=== PATIENT | male | born 1940 | race Caucasian/White ===

== ENCOUNTER 2017-05-15 10:28 | Emergency (ER) | payer OTHER ==
[2017-05-15] MEDS ORDERED: METFORMIN1000 MG PO (10:37)
[2017-05-15] MEDS ORDERED: SIMVASTATIN20 MG PO (10:37)
[2017-05-15] MEDS ORDERED: AMLODIPINE BESYL5 MG PO (10:37)
== END 2017-05-15 14:02 | disposition home or self-care (01) ==
LOC: ED 10:28
DX: S49.91XA Unspecified injury of right shoulder and upper arm, initial encounter (principal); S79.912A Unspecified injury of left hip, initial encounter; Z79.899 Other long term (current) drug therapy; Z88.5 Allergy status to narcotic agent; W00.0XXA Fall on same level due to ice and snow, initial encounter; Y93.89 Activity, other specified; Y92.89 Other specified places as the place of occurrence of the external cause; Y99.9 Unspecified external cause status

== ENCOUNTER → 2023-11-04 | Outpatient (CLI) | payer OTHER ==
[~2023-11-04] MED LIST: AMLODIPINE BESYL5 MG PO; METFORMIN1000 MG PO; SIMVASTATIN20 MG PO
== END | disposition home or self-care (01) ==
LOC: US 08:00
PROVIDERS: ATTEND Internal Medicine
DX: R63.4 Abnormal weight loss (principal); R18.0 Malignant ascites; Z90.49 Acquired absence of other specified parts of digestive tract

== ENCOUNTER → 2024-01-04 | Outpatient (CLI) | payer OTHER | END | disposition home or self-care (01) | LOC: MRI 09:56 | PROVIDERS: ATTEND Internal Medicine | DX: M51.36 Other intervertebral disc degeneration, lumbar region (principal) ==